=== PATIENT | female | born 1985 | race Caucasian/White ===

== ENCOUNTER 2016-09-05 21:13 | Emergency (ER) | payer OTHER ==
[~2016-09-05] VITALS: Ht 167.6 cm; Wt 112.0 kg
[2016-09-05 21:20] VITALS: BP 134/85; PULSE 72; RESP 15; TEMP 98.4; O2SAT 100
--- NOTE | 2016-09-05 21:40 | PD ---
Physical Exam Time Seen by Provider: 21:36 Narrative 31yo F c/o L elbow down the L forearm numbness and tingling started 45 minutes ago. Denies chest pain. Has SOB, but is unchanged from normal SOB. Denies injury. Reports decreased strength at the elbow. Patient seen in triage. VS reviewed. Patient awaiting bed placement. Data Data Last Documented VS Vital Signs Date Time Temp Pulse Resp B/P Pulse Ox O2 Delivery O2 Flow Rate FiO2 09/05/16 21:20 98.4 72 15 134/85 100 Room Air MDM Supervised Visit with AYANNA: Neha Madera Sep 05, 2016 21:40
[2016-09-05] MEDS ORDERED: ABIL2TAB2 PO (21:49)
[2016-09-05] MEDS ORDERED: XANA1TAB2 PO (21:49)
[2016-09-05] MEDS ORDERED: ADDE10 PO (21:49)
[2016-09-05] MEDS ORDERED: FLUO-1 PO (21:49)
--- NOTE | 2016-09-05 21:54 | PD ---
HPI Chief Complaint: Numbness/Tingling Time Seen by Provider: 21:47 Travel History International Travel<30 days: No Contact w/Intl Traveler<30days: No Traveled to known affect area: No History of Present Illness HPI 31-year-old female came to the emergency room with history of sudden onset left elbow pain radiating down her forearm causing tingling and numbness of her fingers in the middle of the palm. Patient says this started in the afternoon today and since then she has been unable to use her left arm mainly because of the pain. Patient is left-handed. She has a baby and she was unable to pick her up or do anything and finally decided to ask her to bring her to the emergency room. No history of fever or chills. No history of trauma that she can think of. For the past 5 days or so she has vigorously vacuum cleaned the entire house [id number] carpeting. She had a dog bite on her right calf 10 days ago and has been on Bactrim. Her primary care has also recommended to have her started on doxycycline. Vital signs are stable. She has been afebrile. No redness or swelling in the area that she reports. FOR[facility], [facility] Past Medical History Narrative Medical List of her past medical, surgical, social and family history is reviewed from the nursing note. Medical History: Denies Significant Hx ADD: Yes ADHD: Yes Anxiety: Yes Depression: Yes GERD: Yes Tetanus Vaccination: Unknown Influenza Vaccination: No ?: Not LMP: 09/05/16 Past Surgical History Section: Yes Social History Alcohol Use: Yes (occ) Tobacco Use: No Substance Use: No Allergies-Medications (Allergen,Severity, Reaction): Coded Allergies: Sulfa (Verified Allergy, Mild, UNKNOWN, 09/05/16) Comments List of her allergies reviewed from the nursing note. Reported Meds & Prescriptions Reported Meds & Active Scripts Active Ibuprofen 600 Mg Tab 600 Mg PO Q6H PRN Reported Prozac (Fluoxetine HCl) 10 Mg Cap 10 Mg PO DAILY Xanax (Alprazolam) 1 Mg Tab 1 Mg PO TID PRN Abilify (Aripiprazole) 2 Mg Tab 5 Mg PO DAILY Adderall (Amphetamine-Dextroamphetamine) 10 Mg Tab 10 Mg PO DAILY Take 10 mg in the morning & 5 mg (1/2 tab) at noon. Narrative Medication List of her home medications reviewed from the nursing note. Review of Systems Except as stated in HPI: all other systems reviewed are Neg Physical Exam Narrative GENERAL: Awake, alert, obese, anxious, moderate distress SKIN: Focused skin assessment warm/dry. HEAD: Atraumatic. Normocephalic. EYES: Pupils equal and round. No scleral icterus. No injection or drainage. ENT: No nasal bleeding or discharge. Mucous membranes pink and moist. NECK: Trachea midline. No JVD. CARDIOVASCULAR: Regular rate and rhythm. No murmur appreciated. RESPIRATORY: No accessory muscle use. Clear to auscultation. Breath sounds equal bilaterally. GASTROINTESTINAL: Abdomen soft, non-tender, nondistended. Hepatic and splenic margins not palpable. MUSCULOSKELETAL: No obvious deformities. No clubbing. No cyanosis. No edema. No swelling or redness of the joint. Extensive tattoos both upper extremities. Patient is unable to fully extend her left arm at the elbow joint due to the pain. Distal pulsations are present. Point tenderness at the medial and lateral epicondyles. Tenderness over the lateral epicondyles is greater than the medial epicondyle. Tenderness within the ulnar groove. NEUROLOGICAL: Awake and alert. No obvious cranial nerve deficits. Motor grossly within normal limits. Normal speech. PSYCHIATRIC: Appropriate mood and affect; insight and judgment normal. Data Data Last Documented VS Vital Signs Date Time Temp Pulse Resp B/P Pulse Ox O2 Delivery O2 Flow Rate FiO2 09/05/16 21:20 98.4 72 15 134/85 100 Room Air Orders Ketorolac Inj (Toradol Inj) (09/05/16 22:15) Dexamethasone Inj (Decadron Inj) (09/05/16 22:15) Elbow, Complete (4 Vws) (09/05/16 ) Ct Elbow W/O Contrast (09/05/16 ) Support Splint (09/06/16 00:39) Sling Cradle Arm (09/06/16 ) MDM Medical Decision Making Medical Screen Exam Complete: Yes Emergency Medical Condition: Yes Medical Record Reviewed: Yes Differential Diagnosis Ulnar neuropathy, elbow fracture, elbow joint effusion Narrative Course 12:53 AM given the significance of the pain in the ulnar groove one of the possibilities was ulnar neuropathy especially given the vigorous vacuum cleaning that the patient did in the past 4-5 days with her left arm I decided to give her anti-inflammatory in the form of IM Toradol and dexamethasone. However given the inability to fully extend the arm I had ordered an x-ray of the elbow that came back positive for small joint effusion. Based on that I ordered a CAT scan to rule out any subtle fracture. The CAT scan once again shows small joint effusion without any fracture. At this point I decided to discharge her home with an arm sling and a prescription for ibuprofen 600 mg. Patient has been given instructions. She has been asked to follow up with orthopedics. She understands the instructions. She'll be discharged. Procedures EKG Prior to Arrival: No Diagnosis Primary Impression: Elbow pain, left Additional Impression: Effusion of elbow joint, left Referrals: Juan Francisco Odell MD 3 days Additional Instructions: Please use the sling, apply ice on the joint, Motrin/ibuprofen/Advil for pain and keep the arm elevated above the heart level.. Call the orthopedist was name and number been provided to you in this discharge instruction. Return to the ER if the condition worsens or any other new concerns. Med/Other Pt SpecificInfo: Prescription(s) given Scripts Ibuprofen 600 Mg Gro364 Mg PO Q6H PRN (Pain/Inflammation) #40 TAB Ref 0 Prov:Bambi Corona MD 09/06/16 Disposition: 01 DISCHARGE HOME Condition: Stable Bambi Corona MD Sep 05, 2016 21:54
[2016-09-05] MEDS ORDERED: KETOROLAC TROMETHAMINE 60 MG/2 ML (IM) VIAL IM ONE (22:15)
[2016-09-05] MEDS ORDERED: DEXAMETHASONE SOD PHOS 20 MG/5 ML VIAL IM ONE (22:15)
--- NOTE | 2016-09-05 22:45 | RADRPT ---
EXAM DATE/TIME: 09/05/2016 22:24 [facility] COMPARISON: No previous studies available for comparison. INDICATIONS : Non-traumatic left elbow pain/tingling. Full ROM MEDICAL HISTORY : None. SURGICAL HISTORY : None. ENCOUNTER: Initial ACUITY: 1 day PAIN SCORE: 6/10 LOCATION: Left elbow FINDINGS: There is very small joint effusion evident without fracture or dislocation. CONCLUSION: Small joint effusion without fracture. Adam Tran MD FACR on September 05, 2016 at 22:42 Board Certified Radiologist. This report was verified electronically.
--- NOTE | 2016-09-06 00:32 | RADRPT ---
EXAM DATE/TIME: 09/05/2016 23:48 [facility] COMPARISON: ELBOW LEFT COMPLETE (4 VWS), September 05, 2016, 22:24. INDICATIONS : Left elbow pain. No known trauma. RADIATION DOSE: 11.61 CTDIvol (mGy) MEDICAL HISTORY : None SURGICAL HISTORY : None. ENCOUNTER: Initial ACUITY: 1 day PAIN SCALE: 6/10 LOCATION: Left elbow TECHNIQUE: Volumetric scanning of the elbow was performed. Using automated exposure control and adjustment of t he mA and/or kV according to patient size, radiation dose was kept as low as reasonably achievable to obtain optimal diagnostic quality images. DICOM format image data is available electronically for r eview and comparison. FINDINGS: BONES: No evidence of fracture. Alignment is within normal limits. JOINTS: Small joint effusion. No significant degenerative changes. SOFT TISSUES: Muscles, tendons and neurovascular structures are grossly unremarkable. No evidence of mass, organize d fluid collection, or foreign body. CONCLUSION: Small joint effusion without fracture or degenerative changes. Rajesh Carlisle MD on September 06, 2016 at 0:27 Board Certified Radiologist. This report was verified electronically.
[2016-09-06] MEDS ORDERED: IBUP-232 PO (00:46)
== END 2016-09-06 00:57 | disposition home or self-care (01) ==
LOC: NEPD 21:13
DX: M25.422 Effusion, left elbow (principal); R20.0 Anesthesia of skin; R20.2 Paresthesia of skin; R06.02 Shortness of breath; F41.9 Anxiety disorder, unspecified; F32.9 Major depressive disorder, single episode, unspecified; K21.9 Gastro-esophageal reflux disease without esophagitis; Z79.899 Other long term (current) drug therapy
CPT/HCPCS: 73080; 73200; 96372; 99284; J1100; J1885

== ENCOUNTER 2016-12-25 13:19 | Emergency (ER) | payer OTHER ==
[~2016-12-25] VITALS: Ht 167.6 cm; Wt 111.0 kg
[~2016-12-25 13:19] MED LIST: ABIL2TAB2 PO; ADDE10 PO; FLUO-1 PO; IBUP-232 PO; XANA1TAB2 PO
[2016-12-25 13:21] VITALS: BP 123/87; PULSE 91; RESP 14; TEMP 97.9; O2SAT 98
[2016-12-25] MEDS ORDERED: LAMI200T PO ×2 (13:39)
--- NOTE | 2016-12-25 13:49 | PD ---
HPI Chief Complaint: Musculoskeletal Complaint Time Seen by Provider: 13:34 Travel History International Travel<30 days: No Contact w/Intl Traveler<30days: No Traveled to known affect area: No History of Present Illness HPI The patient was seen and examined in the presence of the nurse. This patient complains of left hip pain. Duration 2 weeks. Severity is moderate. It's worse with movement. Relieved by rest. Denies direct injury to it. No fever or urinary complaints. PFSH Past Medical History ADD: Yes ADHD: Yes Anxiety: Yes Depression: Yes GERD: Yes ?: Not LMP: 12/03/16 Past Surgical History Surgical History: No Previous Surgery Section: Yes Social History Alcohol Use: Yes (OCC) Tobacco Use: No Substance Use: No Allergies-Medications (Allergen,Severity, Reaction): Coded Allergies: Sulfa (Sulfonamide Antibiotics) (Unverified Allergy, Mild, UNKNOWN, ) Reported Meds & Prescriptions Reported Meds & Active Scripts Active Tramadol (Tramadol HCl) 50 Mg Tab 50 Mg PO Q6H PRN Ibuprofen 600 Mg Tab 600 Mg PO Q6H PRN Reported Lamictal (Lamotrigine) 200 Mg Tab 200 Mg PO DAILY Prozac (Fluoxetine HCl) 10 Mg Cap 10 Mg PO DAILY Xanax (Alprazolam) 1 Mg Tab 1 Mg PO TID PRN Adderall (Amphetamine-Dextroamphetamine) 10 Mg Tab 10 Mg PO DAILY Take 10 mg in the morning & 5 mg (1/2 tab) at noon. Review of Systems General / Constitutional: No: Fever Eyes: No: Visual changes HENT: No: Headaches Cardiovascular: No: Chest Pain or Discomfort Respiratory: No: Shortness of Breath Gastrointestinal: No: Abdominal Pain Genitourinary: No: Dysuria Musculoskeletal: Positive: Arthralgias, Limited ROM, Pain Skin: No Rash Neurologic: No: Weakness Psychiatric: No: Depression Endocrine: No: Polydipsia Hematologic/Lymphatic: No: Easy Bruising Physical Exam Narrative GENERAL: Well-nourished, well-developed patient in no apparent distress. SKIN: Focused skin assessment reveals no rash and nodules. Skin is Warm and dry. HEAD: Atraumatic. Normocephalic. EYES: Pupils equal and round. No scleral icterus. No injection or drainage. ENT: No nasal bleeding or discharge. Mucous membranes pink and moist. NECK: Trachea midline. No JVD. CARDIOVASCULAR: Regular rate and rhythm. No murmur appreciated. RESPIRATORY: No accessory muscle use. Clear to auscultation. Breath sounds equal bilaterally. GASTROINTESTINAL: Abdomen soft, non-tender, nondistended. Hepatic and splenic margins not palpable. MUSCULOSKELETAL: No obvious deformities. No clubbing. No cyanosis. No edema. No tenderness of spine. Good range of motion of left hip NEUROLOGICAL: Awake and alert. No obvious cranial nerve deficits. Motor grossly within normal limits. Normal speech. PSYCHIATRIC: Appropriate mood and affect; insight and judgment normal. Data Data Last Documented VS Vital Signs Date Time Temp Pulse Resp B/P (MAP) Pulse Ox O2 Delivery O2 Flow Rate FiO2 12/25/16 13:21 97.9 91 14 123/87 (99) 98 Orders Orders Pelvis, Ap Only (Routine) (12/25/16 ) Femur (Ap & Lat/2vws) (12/25/16 ) MDM Medical Decision Making Medical Screen Exam Complete: Yes Emergency Medical Condition: Yes Medical Record Reviewed: Yes Differential Diagnosis Sciatica, soft tissue strain, arthritis, dislocation Narrative Course I have reviewed the patient's electronic medical record. I reviewed her pelvis x-ray which is normal I reviewed her left femur x-rays which are normal Presentation is consistent with soft tissue injury. Supportive care discussed. I wrote her some tramadol for pain relief. She plans on following up with orthopedist Diagnosis Primary Impression: Strain of left hip and thigh Qualified Codes: S76.012A - Strain of muscle, fascia and tendon of left hip, initial encounter; S76.912A - Strain of unspecified muscles, fascia and tendons at thigh level, left thigh, initial encounter Additional Instructions: The patient was advised to follow up with their physician and return if they worsen. The patient was warned about potential sedation for the medications they will receive on prescription. Med/Other Pt SpecificInfo: Prescription(s) given Scripts Tramadol (Tramadol) 50 Mg Tab 50 MG PO Q6H Y for PAIN, #20 TAB 0 Refills Prov: Isaias Gonzalez MD 12/25/16 Disposition: 01 DISCHARGE HOME Condition: Stable Isaias Gonzalez MD Dec 25, 2016 13:49
--- NOTE | 2016-12-25 14:31 | RADRPT ---
EXAM DATE/TIME: 12/25/2016 14:00 [facility] COMPARISON: No previous studies available for comparison. INDICATIONS : Left hip pain, no known injury. MEDICAL HISTORY : None. SURGICAL HISTORY : None. ENCOUNTER: Initial ACUITY: 3 weeks PAIN SCORE: 6/10 LOCATION: pelvis FINDINGS: A single frontal view of the pelvis demonstrates no evidence of fracture. The bony pelvic ring is in tact. Bony mineralization is normal. The soft tissues are intact. CONCLUSION: Negative exam. Juni Navas MD on December 25, 2016 at 14:30 Board Certified Radiologist. This report was verified electronically.
--- NOTE | 2016-12-25 14:32 | RADRPT ---
EXAM DATE/TIME: 12/25/2016 14:01 [facility] COMPARISON: No previous studies available for comparison. INDICATIONS : Left femur/hip pain, no known injury. MEDICAL HISTORY : None. SURGICAL HISTORY : None. ENCOUNTER: Initial ACUITY: 3 weeks PAIN SCORE: 6/10 LOCATION: Left hip FINDINGS: Two view examination of the left femur demonstrates no evidence of fracture or dislocation. Bony min eralization is normal. The soft tissue structures are intact. CONCLUSION: Negative exam. Juni Navas MD on December 25, 2016 at 14:30 Board Certified Radiologist. This report was verified electronically.
[2016-12-25] MEDS ORDERED: TRAM50TA PO ×2 (15:25)
== END 2016-12-25 15:45 | disposition home or self-care (01) ==
LOC: NEPD 13:19
DX: S76.012A Strain of muscle, fascia and tendon of left hip, initial encounter (principal); S76.912A Strain of unspecified muscles, fascia and tendons at thigh level, left thigh, initial encounter; X58.XXXA Exposure to other specified factors, initial encounter
CPT/HCPCS: 72170; 73552; 99283